=== PATIENT | male | born 1985 ===

== ENCOUNTER 2025-05-30 13:54 | Inpatient (IN) | payer OTHER ==
[2025-05-30] VITALS (13 sets, daily range): BP systolic 152–203; BP diastolic 67–109
[~2025-05-30] VITALS: Wt 101.3 kg
[~2025-05-30 13:54] MED LIST: ATOR80 PO; CALCIUM CARBON200 M1 PO; CATAPRES0.2 M1 PO; Calcium Acetat667 MG PO; DOXA4 PO; FURO40 PO; HUMALOG KW100 UNIT/1 SC; HYDR100 PO; INSULANI SC; LABE200 PO; LOSA50 PO
[2025-05-30] MEDS ORDERED: FentaNYL Citrate 50 MCG/ML 2 ML Injection IV PRN (15:35)
[2025-05-30] MEDS ORDERED: Ondansetron HCl 2 MG / ML 2ML Vial IV PRN (16:00)
[2025-05-30 16:13] LABS: BASOPHILS ABSOLUTE AUTO 0.13 K/mm3 (0.00-0.23); BASOPHILS PERCENT AUTO 2 % (0-2); EOSINOPHILS ABSOLUTE AUTO 0.28 K/mm3 (0.00-0.68); EOSINOPHILS PERCENT AUTO 3 % (0-6); Hematocrit 30.6 % (37.0-53.0); Hemoglobin 9.4 g/dL (13.5-17.5); IMMATURE GRAN ABSOLUTE AUTO 0.02 K/mm3 (0.00-0.10); IMMATURE GRAN PERCENT AUTO 0 % (0-1); LYMPHOCYTES ABSOLUTE AUTO 0.76 K/mm3 (0.84-5.20); LYMPHOCYTES PERCENT AUTO 9 % (21-46); MONOCYTES ABSOLUTE AUTO 0.58 K/mm3 (0.16-1.47); MONOCYTES PERCENT AUTO 7 % (4-13); Mean Corpuscular HGB Conc 30.7 g/dL (31.5-36.5); Mean Corpuscular Volume 89 fL (80-100); NEUTROPHILS ABSOLUTE AUTO 6.73 K/mm3 (1.96-9.15); NEUTROPHILS PERCENT AUTO 79 % (41-73); NRBC ABSOLUTE 0.00 K/mm3 (0.00-0.02); NRBC Auto 0.0 /100 WBC (0.0-0.2); Platelet Count 206 K/mm3 (150-400); RDW Coefficient Variation 18.5 % (11.7-14.2); RDW Standard Deviation 59.3 fL (35.1-46.3)
[2025-05-30] MEDS ORDERED: Insulin Human Lispro 100 Units/ML 3ML Syringe SC SCH (16:30)
[2025-05-30 17:24] LABS: Alanine Aminotransfer (ALT/SGP 29.0 U/L (12-78); Albumin, Blood 3.4 g/dL (3.4-5.0); Albumin/Globulin Ratio 0.9 (0.8-1.8); Anion Gap 20.0 mmol/L (3-11); Aspartate Aminotrans (AST/SGOT 31.0 U/L (12-37); Bilirubin, Total 0.6 mg/dL (0.1-1.0); Blood Urea Nitrogen 86.0 mg/dL (8-24); CO2, Blood 19.0 mmol/L (21-32); Calcium, Blood 8.6 mg/dL (8.5-10.1); Chloride, Blood 100.0 mmol/L (98-108); Globulin, Blood 3.6 g/dL (2.2-4.0); Glucose, Blood 121.0 mg/dL (70-99); Potassium, Blood 5.8 mmol/L (3.5-5.5); Sodium, Blood 133.0 mmol/L (136-145); Total Protein, Blood 7.0 g/dL (6.4-8.2)
[2025-05-30 17:33] LABS: Creatinine, Blood 10.7 mg/dL (0.60-1.20)
--- NOTE | 2025-05-30 18:13 | NUR ---
SHIFT SUMMARY: PT ARRIVES TO [facility] A DIRECT ADMIT FROM [facility]. PT ARRIVES A&OX4. FOLLOWS COMMANDS AND MAKES NEEDS KNOWN TO STAFF. PT REPORTS SOB BUT DENIES ANY CP, PRESSURE OR TIGHTNESS. PT SEEN BY DR RECINOS AND DR CHEN. PT RECIEVED AN ULTRASOUND OF HIS SCROTUM AND IS CURRENTLY IN DIALYSIS AT THIS TIME. HE HAS BEEN ABLE TO AMBULATE VERY SLOWLY BUT IS PAINFUL WITH AMBULATION. NO SIGNIFICANT EVENTS HAPPENED SINCE ARRIVAL TO THIS FACILITY. WILL CONTINUE TO CARE FOR PT TILL END OF SHIFT.
[2025-05-30] MEDS ORDERED: DOXAZOSIN MESYLA8 M2 PO (19:39)
[2025-05-30] MEDS ORDERED: SUCRALFATE114 PO (19:45)
[2025-05-30] MEDS ORDERED: CINACALCET HCL30 M1 PO (19:47)
[2025-05-31] VITALS (31 sets, daily range): BP systolic 140–228; BP diastolic 72–148
[2025-05-31 04:16] LABS: BASOPHILS ABSOLUTE AUTO 0.14 K/mm3 (0.00-0.23); BASOPHILS PERCENT AUTO 2 % (0-2); EOSINOPHILS ABSOLUTE AUTO 0.41 K/mm3 (0.00-0.68); EOSINOPHILS PERCENT AUTO 5 % (0-6); Hematocrit 27.3 % (37.0-53.0); Hemoglobin 8.4 g/dL (13.5-17.5); IMMATURE GRAN ABSOLUTE AUTO 0.04 K/mm3 (0.00-0.10); IMMATURE GRAN PERCENT AUTO 1 % (0-1); LYMPHOCYTES ABSOLUTE AUTO 0.74 K/mm3 (0.84-5.20); LYMPHOCYTES PERCENT AUTO 9 % (21-46); MONOCYTES ABSOLUTE AUTO 0.53 K/mm3 (0.16-1.47); MONOCYTES PERCENT AUTO 7 % (4-13); Mean Corpuscular HGB Conc 30.8 g/dL (31.5-36.5); Mean Corpuscular Volume 88 fL (80-100); NEUTROPHILS ABSOLUTE AUTO 5.98 K/mm3 (1.96-9.15); NEUTROPHILS PERCENT AUTO 76 % (41-73); NRBC ABSOLUTE 0.00 K/mm3 (0.00-0.02); NRBC Auto 0.0 /100 WBC (0.0-0.2); Platelet Count 197 K/mm3 (150-400); RDW Coefficient Variation 18.2 % (11.7-14.2); RDW Standard Deviation 58.4 fL (35.1-46.3)
[2025-05-31 04:53] LABS: Magnesium, Blood 2.6 mg/dL (1.6-2.4)
[2025-05-31 05:05] LABS: Anion Gap 16.0 mmol/L (3-11); Blood Urea Nitrogen 79.0 mg/dL (8-24); CO2, Blood 22.0 mmol/L (21-32); Calcium, Blood 8.0 mg/dL (8.5-10.1); Chloride, Blood 97.0 mmol/L (98-108); Creatinine, Blood 9.23 mg/dL (0.60-1.20); Glucose, Blood 318.0 mg/dL (70-99); Phosphorus, Blood 8.2 mg/dL (2.5-4.9); Potassium, Blood 5.3 mmol/L (3.5-5.5); Sodium, Blood 130.0 mmol/L (136-145)
--- NOTE | 2025-05-31 06:22 | NUR ---
SHIFT SUMMARY: PT A&OX4 CALM AND COOPERATIVE. FOLLOWS COMMANDS AND ABLE TO MAKE NEEDS KNOWN. VSS ON RA. PT REPORTS SOB D/T PRESSURE FROM ABDOMEN. BILATERAL LOWER QUADRANT TENDERNESS UPON PALPATION. DENIES CHEST PAIN/PRESSURE. DIALYSIS COMPLETED 05/30/25. PT TOLERATED DIALYSIS WELL. PT REPORTS SCROTUM PAIN 8-. MEDICATED PER EMAR. PT REPORTED FEELING NAUSEOUS AND BEGAN DRY HEAVING. ZOFRAN PRN X1 GIVEN. SBA IN ROOM. PT REPORTS OLIGURIA AT BASELINE. PAINFUL TO AMBULATE IN ROOM. FLUID RESTRICTION FOLLOWED. TOTAL INTAKE FOR MOTORSPORTS TECHNICIAN 400ML. DAILY WEIGHT COMPLETED. CRITICAL LAB VALUE RECEIVED AT 0505. CR: 9.23 AND PHOS: 8.2. DR. CHEN NOTIFIED. NO NEW ORDERS AT THIS TIME. NO OTHER SIGNIFICANT CHANGES AT THIS TIME. BED IS LOW AND LOCKED. CALL LIGHT WITHIN REACH. WILL CONTINUE PLAN OF CARE TILL REPORT GIVEN TO DAY NURSE.
[2025-05-31] MEDS ORDERED: Metoclopramide HCl 5MG / ML 2ML Vial IV PRN (08:05)
[2025-05-31] MEDS ORDERED: Calcium Acetate 667 MG Gel Cap PO SCH (08:30)
[2025-05-31] MEDS ORDERED: Vitamin B Cmplx/Vit C/Folic Ac 1 Tab PO SCH (09:00)
[2025-05-31] MEDS ORDERED: Insulin Glargine-Yfgn 100 Unit/mL 3 ML SYR SC SCH (10:00)
[2025-05-31] MEDS ORDERED: Cardura8 MG PO (10:29)
[2025-05-31] MEDS ORDERED: HYDPAM25 PO (10:30)
[2025-05-31] MEDS ORDERED: Rena-Vite Tabl0.8 MG PO (10:33)
[2025-05-31] MEDS ORDERED: Insulin Human Lispro 100 Units/ML 3ML Syringe SC SCH (11:30)
[2025-05-31] MEDS ORDERED: HydrALAZINE HCl 20 MG / ML 1ML Vial IV PRN (13:55)
--- NOTE | 2025-05-31 18:38 | NUR ---
End of Shift Pt A&O x4. BP elevated. notified & w/ orders for home BP medications & an additional PRN, see emar. Pt BP improving. VSS. Spo2 > 92% on RA. No telemetry in place d/t pt refusal of telemetry. Pt w/ continued scrotum swelling & pain. Pt medicated per emar/pt request w/ report of improvement in pain. Pt gone to dialysis this shift. Pt reporting feeling "worn out" upon return from dialysis. Pt able to transfer independently to chair & bathroom in . Pt reporting "something gave me the shits." Then reports likely PO lokelma. Pt reporting loose stools following lokelma administration this shift.
[2025-06-01] VITALS (25 sets, daily range): BP systolic 113–211; BP diastolic 59–178
[2025-06-01 04:35] LABS: Hematocrit 28.0 % (37.0-53.0); Hemoglobin 8.7 g/dL (13.5-17.5)
[2025-06-01 04:59] LABS: Albumin, Blood 3.1 g/dL (3.4-5.0); Anion Gap 13 mmol/L (3-11); Blood Urea Nitrogen 55 mg/dL (8-24); CO2, Blood 29 mmol/L (21-32); Calcium, Blood 7.7 mg/dL (8.5-10.1); Chloride, Blood 96 mmol/L (98-108); Creatinine, Blood 6.84 mg/dL (0.60-1.20); Glucose, Blood 241 mg/dL (70-99); Magnesium, Blood 2.4 mg/dL (1.6-2.4); Phosphorus, Blood 7.5 mg/dL (2.5-4.9); Potassium, Blood 3.6 mmol/L (3.5-5.5); Sodium, Blood 134 mmol/L (136-145)
--- NOTE | 2025-06-01 08:13 | NUR ---
SHIFT SUMMARY: PT A&OX4 CALM AND COOPERATIVE. FOLLOWS COMMANDS AND ABLE TO MAKE NEEDS KNOWN. HYPERTENSIVE. SBP 170S-190S. MEDICATED PER EMAR. HYDRALAZINE 20MG PRN X1. SBP DECREASED TO 160S AFTER MEDICATING. PT REPORTS SCROTUM PAIN 8- /10. MEDICATED PER EMAR. POWERGLIDE INSERTED IN RUE. INDEPENDENT IN ROOM. TOLERATING RENAL DIET. DENIES NAUSEA/VOMITING. DAILY WEIGHT COMPLETED. BED IS LOW AND LOCKED. CALL LIGHT WITHIN REACH. WILL CONTINUE PLAN OF CARE TILL REPORT GIVEN TO DAY NURSE.
--- NOTE | 2025-06-01 08:50 | NUR ---
Dialysis Pt gone to dialysis. A&O x4. VSS. Spo2 > 92% on RA. Pt c/o pain in scrotum. Medicated per emar w/ pt denial of improvement, pt stating "I think it still needs time to kick in." Pt gone to dialysis after breakfast.
--- NOTE | 2025-06-01 18:13 | NUR ---
Transfer to Medical / End of Shift Pt made medical no telemetry status w/ Q4H VS. Pt A&O x4. BP elevated but improving. VSS. Spo2 > 92% on RA. Pt w/ scrotum pain & swelling w/ pt denial of improvement in swelling. Pt being medicated for pain per emar w/ pt report of little improvement. Dialysis done this AM. Report given to accepting medical floor RN assuming care of pt. Pt taken to rm 310 by wheelchair w/ belongings.
--- NOTE | 2025-06-01 19:41 | NUR ---
ASSUMPTION OF CARE RECIEVED CLIENT TRANSFER FROM PCU. CLIENT ADMITTED FOR FLUID OVERLOAD SECONDARY TO NOT BEING ABLE TO BE DIALIZED IN HOME TOWN. PER PCU REPORT, CLIENT HAS UNDERGONE DIALYSIS THE PAST 3 DAYS AND HAD A TOTAL OF 11.9 LITERS OF FLUID TAKEN OFF. CLIENT IS SCHEDULED FOR DIALYSIS TOMORROW. CLIENT IS AOX4 AND INDEPENDENT IS ROOM. CLIENT HAS VITAL SIGNS EVERY FOUR HOURS SECONDARY TO HIGH BLOOD PRESSURE. CLIENT HAS AC/HS BLOOD SUGARS. SCROTUM REMAINS SWOLLEN. BED IS IN LOW POSTION AND CALL LIGHT IS WITHIN REACH.
[2025-06-01] MEDS ORDERED: Heparin Sodium,Porcine 5,000 UNIT/0.5 ML SDV SC SCH (21:00)
[2025-06-02] VITALS (22 sets, daily range): BP systolic 126–202; BP diastolic 42–119
[2025-06-02] MEDS ORDERED: Glucagon, Human Recombinant 1 MG/Vial IM ONE (07:00)
[2025-06-02] MEDS ORDERED: Glucagon 1 MG/KIT VIAL ONE (07:09)
--- NOTE | 2025-06-02 09:10 | NUR ---
NOTE 7AM COMPLAINT SOB. 2L APPLIED FOR COMFORT, SPO2 100% PULSE 80. BP 185/102. NIGHT RN GAVE 20MG HYDRALAZINE FOR BP. SUPERVISER IN ROOM. THIS RN NOTED PT TALKING ONE MINUTE THEN NOT RESONDING TO QUESTIONS ASKED. PT DIAPHORETIC. SUGAR CHECK COMPLETE 18. MACHINE TECHNICIAN NOTIFIED DR. RECINOS. 1 AMP OF GLUCOGON GIVEN. PT ABLE TO DRINK 240 ML OF APPLE JUICE. BLOOD SUGAR CHECK COMPLETE 21. MACHINE TECHNICIAN GAVE AMP OF D50. BLOOD SUGAR CHECK COMPLETE, 36. PT ABLE TO EAT AT THAT POINT. INCREASE CBG NOTED. LAST CBG WAS 254 LUNGS CLEAR. PT REPORTS "IMPROVED CONDITION, I NOTICED I WAS GRUMPY AND SWEATY AND ANXIOUS WHEN MY SUGAR WAS LOW." NOTIFIED DIALYSIS. PT WHEELED DOWN TO DIALYSIS AT 0830.
[2025-06-02] MEDS ORDERED: Insulin Human Lispro 100 Units/ML 3ML Syringe SC SCH ×2 (11:30→16:30)
--- NOTE | 2025-06-02 11:43 | NUR ---
NOTE CHECKED PT BLOOD SUGAR WHILE PT IN DIALYSIS, 316. PT FEELING HOT. CLAUDIA UP INSULIN, PT REPORTED "WANT TO WAIT 10 MINUTES TILL IM DONE WITH DIALYSIS." THIS RN DID NOT GIVE LUNCH INSULIN. WILL WAIT TILL DIALYSIS COMPLETE, PER PT REQUEST
[2025-06-02] MEDS ORDERED: Insulin Human Lispro 100 Units/ML 3ML Syringe SC ONE (15:45)
--- NOTE | 2025-06-02 18:33 | NUR ---
NOTE PT CAME BACK TO FLOOR FROM DIALYSIS AT 1200. PT ADAMANT ABOUT DISCHARGE. PT REPORTED "DR. CHEN CAME TO SEE ME IN DIALYSIS AND SAID I COULD BE DISCHARGE TODAY. DR. RECINOS ORDERED DISCHARGE. RIDE ARRANGED PER CASE MANAGEMENT. PT BLOOD SUGAR CHECKED AT 1519. IT WAS 365. CALLED TO NOTIFY DR. RECINOS. DR. RECINOS GAVE TELEPHONE ORDER TO GIVE 10 UNITS OF LISPRO NOW. NOTIFIED BREAK RN. THIS RN CAME BACK FROM BREAK AND BREAK RN REPORTED "PT REPORTED ONLY WOULD TAKE 8 UNITS OF INSULIN, GAVE 8." NOTIFIED DR. RECINOS. ENGINEER TECHNICAL STAFF FROM [place]. ASKED FOR PLAN POST PT DISCHAGE, "WHEN WILL DISCHARGE BE AND WILL HE STILL NEED IV ANTIBIOTIC." THIS RN NOTED PT HAD NOT BEEN RECEIVING IV ANTIBIOTICS. ENGINEER TECHNICAL STAFF REPORTED "PT HAD POSITIVE BLOOD CULTURES ON 05-27. AT [facility], PT AND WAS RECEIVING 2G CEFIZOLIN AT OUR DIALYSIS CLINIC." KEVIN (CLINICAL PROFILER HAND AND RN) CALL BACK NUMBER IS [phone] RECINOS TO NOTIFY CONVERSATION, DR. RECINOS REPORTED "UNSAFE TO DISCHARGE AT THIS POINT, IF PT WANTS TO LEAVE HE HAS TO AMA." THIS RN REPORTED TO PT, RECOMENDATION." DR. RECINOS ORDERED BLOOD CULTURES TO BE DRAWN. PT YELLING AT STAFF, REPORTED "DON'T UNDERSTAND WHY I CAN'T LEAVE WHEN DR. CHEN SAID OTHERWISE. I NEED TO SEE DR. RECINOS". REPORTED TO DR. RECINOS THAT "PT REQUEST TO SEE HIS " MULTIPLE TIMES. DR. RECINOS REPORTED "UNABLE TO." PT REPORTED "WILL NOT ACCEPT CARE UNTIL I SEE DR. RECINOS." LEFT VOICEMAIL FOR DR. RECINOS WITH PT REPORT. PT DID ALLOW THIS RN TO CHECK BLOOD SUGAR PRIOR TO DINNER AND GIVE INSULIN. PT CONT TO REFUSE VITALS. STAFF
--- NOTE | 2025-06-02 19:35 | NUR ---
SHIFT SUMMARY PT A&OX4. PT ADMITTED DUE TO FLUID VOLUME OVERLOAD. PT ACHS CBG. NOTIFIED NIGHT RN ORDERED ONCE CBG CHECK BETWEEN BEDTIME AND AM LABS. PT KVNG, LAST CBG WAS 292. INSULIN WAS COVERED AT DINNER TIME. PT DOES NOT HAVE IV. BREAK RN REMOVED IV "DUE TO PT THOUGHT HE WOULD BE DISCHARGED TODAY." PT REFUSED TO HAVE ANOTHER IV PUT IN. PT INDEPENDENT IN ROOM. PT HAD DIALYSIS THIS AM. PT FOLLOWS FLUID RESTRICTION OF 1,000ML. PT IN BED, BED IN LOWEST POSITION, CALL LIGHT IN REACH.
[2025-06-02] MEDS ORDERED: Insulin Glargine-Yfgn 100 Unit/mL 3 ML SYR SC SCH ×2 (21:00)
[2025-06-02 21:41] LABS: Hematocrit 27.8 % (37.0-53.0); Hemoglobin 8.5 g/dL (13.5-17.5)
[2025-06-02 21:56] LABS: Albumin, Blood 2.9 g/dL (3.4-5.0); Anion Gap 11 mmol/L (3-11); Blood Urea Nitrogen 35 mg/dL (8-24); CO2, Blood 32 mmol/L (21-32); Calcium, Blood 8.0 mg/dL (8.5-10.1); Chloride, Blood 93 mmol/L (98-108); Creatinine, Blood 4.97 mg/dL (0.60-1.20); Glucose, Blood 368 mg/dL (70-99); Magnesium, Blood 2.3 mg/dL (1.6-2.4); Phosphorus, Blood 5.1 mg/dL (2.5-4.9); Potassium, Blood 4.0 mmol/L (3.5-5.5); Sodium, Blood 132 mmol/L (136-145)
[2025-06-03] VITALS (11 sets, daily range): BP systolic 127–201; BP diastolic 50–98
[2025-06-03] MEDS ORDERED: Insulin Human Lispro 100 Units/ML 3ML Syringe SC ONE ×2 (04:05→11:30)
--- NOTE | 2025-06-03 11:15 | NUR ---
NOTE THIS AM NIGHT RN REPORTED HOLDING LONG ACTING INSULIN LAST NIGHT. NIGHT RN REPORTED GIVING A ONE TIME OF 4 UNITS AT 3-4AM FOR BLOOD SUGAR OF 305. NIGHT RN REPORTED "GAVE MORNING INSULIN EARLY AT 0630 DUE TO BLOOD SUGAR WAS 437." NIGHT RN REPORTED GIVING TEN UNITS. NIGHT RN REPORTED GIVING 10 MG OF HYDRALAZINE AT 0331 FOR BLOOD PRESSURE OF 177/88. CALLED DR. RECINOS TO REPORT WHAT NIGHT RN STATED, LEFT VOICEMAIL NOTING THAT PT BLOOD SUGAR AT 0802 WAS 395. GAVE ORDERED LONG ACTING THIS AM. REEL FILM INSPECTOR STATED PT WILL COME TO DIALYSIS AT 1200. STATED, OK TO GIVE MORNING ANTIHYPERTENSIVES MEDS." PT BLOOD SUGAR AT [address] RECINOS ORDERED ONE TIME OF 5 LISPRO, THIS RN NOTIFIED PT. PT STATED "I AM NOT GOING TO GO INTO [facility], I NEED 10 OF SHORT ACTING." NOTIFIED DR. RECINOS, DR. RECINOS STATED "GIVE 10 OF SHORT."
[2025-06-03] MEDS ORDERED: CEFAZOLIN SODIUM1 G1 IV (13:49)
[2025-06-03] MEDS ORDERED: CeFAZolin Sodium 2,000 MG in NS 100 ML IV ONE (15:00)
--- NOTE | 2025-06-03 19:21 | NUR ---
NOTE BREAK RN GAVE 10 UNITS OF INSULIN FOR COVERAGE FOR LUNCH. BLOOD SUGAR WAS 366 AT 1216. RECHECKED BLOOD SUGAR AT 1338 WHILE PT IN DIALYSIS, WAS 150. CALLED DR. RECINOS TO NOTIFY BLOOD SUGAR AND TO ASK PLAN FOR DISCHARGE. REPORTED PT REQUESTING TO LEAVE. DR. RECINOS REPORTED "GIVE ONE TIME DOSE OF IV ANTIBIOTIC POST DIALYSIS. RECHECK BLOOD SUGAR AT 1600 WILL TALK TO CHRISTIE LINK ABOUT TRANSPORT FOR PT, PT CAN BE DISCHARGED." STRIP PICKER SET UP TRANSPORT. PT REFUSED IV ANTIBIOTIC DOSE POST DIALYSIS. PT REPORTED, "ANTIBIOTIC MAKES ME HAVE DIARHEA, I JUST WANT TO GO HOME, NO REASON TO BE HERE." THIS RN EDUCATED ABOUT ANTIBIOTIC USE. STRIP PICKER REPORTED, "PT HAS TO LEAVE AMA IF PT REFUSES ANTIBIOTIC. WILL REPORT TO GRISEL WHEELER." PT ALLOWED THIS RN TO TAKE BLOOD SUGAR. BLOOD SUGAR AT 1448 WAS 72. PT REQUESTED SNACK. THIS RN GAVE PT A SNACK. PT LEFT BY FOOT. EDUCATED ABOUT RISKS BENEFIT OF LEAVING AMA. PT SIGNED FORM. POWERGLIDE REMOVED. PT LEFT WITH ALL BELONGINGS. PT PICKED UP BY TRANSPORT AT 1515. POWERGLIDE D/C.
== END 2025-06-03 15:30 | disposition home or self-care (01) | DRG 682 ==
LOC: PCU 13:54 → MEDS 06-01 14:59 → PCU 06-01 15:00 → MEDS 06-01 18:12
PROVIDERS: Family Medicine; Internal Medicine Nephrology; ADMIT Internal Medicine
PROC: 5A1D70Z Performance of Urinary Filtration, Intermittent, Less than 6 Hours Per Day (ICD-10-PCS; principal; 2025-05-30)
DX: I12.0 Hypertensive chronic kidney disease with stage 5 chronic kidney disease or end stage renal disease (principal); N18.6 End stage renal disease; E87.1 Hypo-osmolality and hyponatremia; E87.20 Acidosis, unspecified; E87.5 Hyperkalemia; D63.1 Anemia in chronic kidney disease; E10.22 Type 1 diabetes mellitus with diabetic chronic kidney disease; Z99.2 Dependence on renal dialysis; N50.819 Testicular pain, unspecified; N50.89 Other specified disorders of the male genital organs; E10.649 Type 1 diabetes mellitus with hypoglycemia without coma; E10.65 Type 1 diabetes mellitus with hyperglycemia; E87.70 Fluid overload, unspecified; Z86.718 Personal history of other venous thrombosis and embolism; Z98.890 Other specified postprocedural states; Z88.8 Allergy status to other drugs, medicaments and biological substances; Z91.018 Allergy to other foods; Z79.899 Other long term (current) drug therapy
CPT/HCPCS: 36415; 76870; 80048; 80053; 80069; 82947; 83735; 84100; 85014; 85018; 85025; A9270; C1751; J0360; J1610; J1815; J2405; J2765; J3010